=== PATIENT | female | born 2000 | race African-American/Black ===

== ENCOUNTER 2020-03-17 15:32 | Observation (INO) | payer MEDICAID ==
[~2020-03-17] VITALS: Ht 154.9 cm; Wt 79.4 kg
[2020-03-17] MEDS ORDERED: PNV1TABL76 MT (16:41)
== END 2020-03-17 16:45 | disposition home or self-care (01) ==
LOC: 8 EST LDRP 15:32
PROVIDERS: ADMIT Obstetrics & Gynecology; ATTEND Obstetrics & Gynecology
DX: O26.892 Other specified pregnancy related conditions, second trimester (principal); R10.30 Lower abdominal pain, unspecified; Z3A.26 26 weeks gestation of pregnancy
CPT/HCPCS: 59025; G0378; 99281